=== PATIENT | female | born 1960 | race Caucasian/White ===

== ENCOUNTER 2017-09-24 11:06 | Emergency (ER) | payer OTHER ==
[2017-09-24] MEDS ORDERED: HYDROmorphone 1 MG/ML SYRINGE IM STA (12:18)
[2017-09-24] MEDS ORDERED: KETOROLAC 60 MG/2 ML VIAL IM STA (12:18)
[2017-09-24] MEDS ORDERED: DEXAMETHASONE 10 MG/ML VIAL IM STA (12:18)
--- NOTE | 2017-09-24 12:20 | ED Physician Documentation ---
PD HPI BACK PAIN - Stated complaint Stated Complaint: BACK PX - Chief complaint Chief Complaint: Back Pain - History obtained from History obtained from: Patient, Family - History of Present Illness Timing - onset: Other (57-year-old woman with recurrent back spasms that happen maybe a few times a year developed right low back pain after sitting in a hard chair 2 nights ago that is similar to prior back issues. Pain is in the right low back and radiates to the right hip but not further. There is no associated weakness, numbness, or tingling. It hurts worse if she takes a deep breath or bends over. There is no associated fever. She took hydrocodone and Flexeril with moderate to good relief. 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 HEENT: Tonsil/Adenoidectomy - Present Medications Home Medications: Ambulatory Orders Medication Instructions Recorded Confirmed Carboxymethylcellulose Sodium 1 each OP DAILY PRN 03/20/13 05/16/14 [Refresh Plus] Cyclosporine [Restasis] 1 each OP BID 03/20/13 05/15/14 Cyclobenzaprine [Flexeril] 10 mg PO TID PRN #20 tablet 09/24/17 predniSONE [Deltasone] 20 mg PO [id number] #21 tab 09/24/17 - Allergies Allergies/Adverse Reactions: Allergies Allergy/AdvReac Type Severity Reaction Status Date / Time Penicillins Allergy Intermediate Rash Verified 03/20/13 10:59 - Social History Does the pt smoke?: No Smoking Status: Never smoker Does the pt drink ETOH?: Yes Does the pt have substance abuse?: No - Immunizations Immunizations are current?: Yes PD ED PE NORMAL - Vitals Vital signs reviewed: Yes - General General: Alert and oriented X 3, No acute distress, Other (Prefers to stand and winces with deep breathing or motion.) - Abdomen Abdomen: Soft, Non tender - Back Back: No spinal TTP - Extremities Extremities: Other (The patient has equal and normal Achilles and patellar reflexes bilaterally. Normal sensation in all areas of the legs. Patient denies saddle anesthesia. Normal strength in flexion-extension at the ankles, knees, and flexion of the hips.) - Neuro Neuro: Alert and oriented X 3, Normal speech Results - Vitals Vitals: Vital Signs - 24 hr 09/24/17 11:18 Temperature 37.1 C Heart Rate 80 Respiratory 18 Rate Blood Pressure 141/92 H O2 Saturation 97 Oxygen O2 Source Room air PD MEDICAL DECISION MAKING - ED course ED course: This patient has seemingly uncomplicated musculoskeletal back pain. The patient has no "red flags." Specifically denies IV drug use, fevers, incontinence, saddle anesthesia. Spinal epidural abscess was considered, given that the patient has no fever, is not diabetic, has no spinal tenderness, does not use IV drugs, and has no bilateral neurologic symptoms, the diagnosis of spinal epidural abscess is considered exceedingly unlikely. Departure - Departure Disposition: Home, Self Care Clinical Impression: Back muscle spasm Condition: Good Record reviewed to determine appropriate education?: Yes Instructions: ED Low Back Pain Injury Prescriptions: Cyclobenzaprine [Flexeril] 10 mg PO TID PRN #20 tablet PRN Reason: Pain predniSONE [Deltasone] 20 mg PO [id number] #21 tab Comments: Call your doctor to arrange a follow-up appointment, make the next available appointment. In the interim, return anytime if worse or if new symptoms develop. Your blood pressure was elevated today on check into the emergency department. This does not mean that you have hypertension, it is a common phenomenon to come to the emergency department and have elevated blood pressure. I recommend that you see your primary care physician within the week to have it rechecked when you are feeling better.
[2017-09-24] MEDS ORDERED: CHERRY SYRUP 10 ML UDC PO ONE (12:34)
[2017-09-24] MEDS ORDERED: DEXAMETHASONE 10 MG/ML VIAL PO STA (12:44)
[2017-09-24] MEDS ORDERED: ONDANSETRON ODT 4 MG TABLET TL STA (12:44)
[2017-09-24 13:19] VITALS: BP 131/86
== END 2017-09-24 13:17 | disposition home or self-care (01) ==
LOC: ED 11:06
DX: M62.830 Muscle spasm of back (principal); R03.0 Elevated blood-pressure reading, without diagnosis of hypertension
CPT/HCPCS: 96372; 99283; A9270; J1170

== ENCOUNTER 2017-11-22 23:46 | Emergency (ER) | payer OTHER ==
[2017-11-23 00:02] VITALS: BP 136/87
--- NOTE | 2017-11-23 01:16 | ED Physician Documentation ---
PD HPI ABD PAIN - Stated complaint Stated Complaint: CONSTIPATION - Chief complaint Chief Complaint: Abd Pain - History obtained from History obtained from: Patient, Family - History of Present Illness Timing - onset: Today Timing - details: Gradual onset, Still present Quality: Cramping, Aching Location: All over / everywhere Associated symptoms: Constipation. No: Fever, Nausea, Vomiting Similar symptoms before: No diagnosis Recently seen: Surgery - Additional information Additional information: Patient is a 57 year old female who is presenting to the emergency department for abdominal pain and constipation. patient had a d/c done yesterday and today developed worsening abdominal pain and constipation. Patient states that she felt like she had a grapefruit sized stool stuck. Patient tried to do her own disimpaction but was unsuccessful. While waiting to be seen patient had a bowel movement and improvement of her symptoms. Review of Systems Constitutional: denies: Fever, Chills Eyes: reports: Reviewed and negative Ears: reports: Reviewed and negative Nose: reports: Reviewed and negative Throat: reports: Reviewed and negative Cardiac: reports: Reviewed and negative GI: reports: Abdominal Pain, Constipation. 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 HEENT: Tonsil/Adenoidectomy - Present Medications Home Medications: Ambulatory Orders Medication Instructions Recorded Confirmed Carboxymethylcellulose Sodium 1 each OP DAILY PRN 03/20/13 05/16/14 [Refresh Plus] Cyclosporine [Restasis] 1 each OP BID 03/20/13 05/15/14 Cyclobenzaprine [Flexeril] 10 mg PO TID PRN #20 tablet 09/24/17 predniSONE [Deltasone] 20 mg PO [id number] #21 tab 09/24/17 - Allergies Allergies/Adverse Reactions: Allergies Allergy/AdvReac Type Severity Reaction Status Date / Time Penicillins Allergy Intermediate Rash Verified 03/20/13 10:59 - Social History Does the pt smoke?: No Smoking Status: Never smoker Does the pt drink ETOH?: Yes Does the pt have substance abuse?: No - Immunizations Immunizations are current?: Yes PD ED PE NORMAL - Vitals Vital signs reviewed: Yes - General General: Alert and oriented X 3, No acute distress - HEENT HEENT: Atraumatic - Cardiac Cardiac: RRR - Respiratory Respiratory: No respiratory distress - Abdomen Abdomen: Soft, Non tender, Non distended - Derm Derm: Normal color, Warm and dry, No rash - Extremities Extremities: No deformity - Neuro Neuro: Alert and oriented X 3, No motor deficit Eye Opening: Spontaneous Motor: Obeys Commands Verbal: Oriented GCS Score: 15 - Psych Psych: Normal mood Results - Vitals Vitals: Vital Signs - 24 hr 11/22/17 23:59 Temperature 37.1 C Heart Rate 99 Respiratory 20 Rate Blood Pressure 136/87 H O2 Saturation 99 Oxygen O2 Source Room air - Rads (name of study) abd series Radiology: Final report received (no signs of obstruction) PD MEDICAL DECISION MAKING - ED course Complexity details: reviewed old records, reviewed results, re-evaluated patient , considered differential, d/w patient ED course: Patient was seen and examined at bedside. imaging had been ordered before patient had a bowel movement. Patient had two bowel movements while in the ED. Patient required no further work up and was stable for discharge with outpatient follow up. Departure - Departure Disposition: 01 Home, Self Care Clinical Impression: Constipation Condition: Good Instructions: ED Constipation Follow-Up: [facility] [Primary Care Provider] - As Needed Comments: Your x-ray today showed no sign of obstruction but there is still moderate amount of stool burden. You should continue with the increased water intake as well as a high fiber diet. You should follow up with your doctor as needed for new, worsening or uncontrollable symptoms. Discharge Date/Time: 11/23/17 01:23
--- NOTE | 2017-11-23 01:27 | XRAY Report ---
EXAM: ABDOMINAL SERIES AND PA CHEST EXAM DATE: 11/23/2017 12:49 AM. CLINICAL HISTORY: Abdominal pain. COMPARISON: None. TECHNIQUE: 2 views abdomen and 1 view chest. FINDINGS: CHEST: Lungs/Pleura: No focal opacities. No effusion or pneumothorax. Mediastinum: Heart size is normal. Aorta is mildly tortuous. ABDOMEN: Bowel Gas Pattern: Mild gaseous distention of small bowel and colon. No bowel dilatation. Small volum e of stool in the colon. No portal venous gas or pneumatosis. Free Air: None. Other: Mild degenerative changes. Dextroscoliosis of the lumbar spine. No acute osseous abnormalities . IMPRESSION: 1. No acute disease in the chest. 2. No bowel obstruction. 3. No free air. 4. Small volume of stool in the colon. [facility] Referring Provider Line: [phone] SITE ID: [id number]
== END 2017-11-23 01:23 | disposition home or self-care (01) ==
LOC: ED 23:46
DX: K59.00 Constipation, unspecified (principal)
CPT/HCPCS: 74022; 99282; 99283

== ENCOUNTER 2018-03-21 12:52 | Outpatient (CLI) | payer OTHER ==
--- NOTE | 2018-03-24 14:25 | Mammography Report ---
Procedure Date: 03/21/2018 Accession Number: [id number] / [id number] Procedure: MARGUERITE - Screening Mammo Dig Bilat CPT Code: FULL RESULT: EXAM: Screening Mammo Dig Bilat DATE: 03/21/2018 1:08 PM CLINICAL HISTORY: 57-year-old with history of benign left cyst aspiration for screening TECHNIQUE: Bilateral CC and MLO views were obtained. COMPARISON: Films from [place], [place] dated 03/24/2017, 08/18/2015, 05/15/1714 FINDINGS: The breasts demonstrate diffuse fatty replacement bilaterally. A few coarse, typically benign calcifications are present. No suspicious masses, clustered microcalcifications, or regions of architectural distortion are identified. IMPRESSION: Benign findings RECOMMENDATION: Routine annual screening unless otherwise clinically indicated. BIRADS CATEGORY 2: Benign findings STANDARD QUALIFYING STATEMENTS: 1. This examination was reviewed with the aid of Computer-Aided Detection (CAD). 2. A negative or benign imaging report should not delay biopsy if clinically suspicious findings are present. Consider surgical consultation if warrented. More than 5% of cancers are not identified by imaging. 3. Dense breasts may obscure an underlying neoplasm.
== END 2018-03-21 12:53 | disposition home or self-care (01) ==
LOC: DI 12:52
PROVIDERS: ATTEND Nurse Practitioner Family
DX: Z12.31 Encounter for screening mammogram for malignant neoplasm of breast (principal)
CPT/HCPCS: 77067

== ENCOUNTER 2018-08-18 15:50 | Emergency (ER) | payer OTHER ==
[2018-08-18 16:18] VITALS: BP 142/81
[2018-08-18] MEDS ORDERED: KETOROLAC 60 MG/2 ML VIAL IM STA (17:47)
--- NOTE | 2018-08-18 17:49 | ED Physician Documentation ---
PD HPI BACK INJURY - Stated complaint Stated Complaint: BK PX - History obtained from History obtained from: Patient - History of Present Illness Location: Right (57-year-old woman with occasional back pain, about once a year it has been flared over the last 2 days with pain over the right side of the lumbar spine into the hip a little bit. There is no associated weakness, numbness, tingling, saddle anesthesia, fever, or incontinence. 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 HEENT: Tonsil/Adenoidectomy - Present Medications Home Medications: Ambulatory Orders Medication Instructions Recorded Confirmed Carboxymethylcellulose Sodium 1 each OP DAILY PRN 03/20/13 05/16/14 [Refresh Plus] Cyclosporine [Restasis] 1 each OP BID 03/20/13 05/15/14 Cholecalciferol (Vitamin D3) 08/18/18 [Vitamin D3] Cyclobenzaprine [Flexeril] 10 mg PO TID PRN #20 tablet 08/18/18 Ibuprofen [Motrin] 08/18/18 Multivitamin [Multiple Vitamins] 08/18/18 Oxycodone HCl/Acetaminophen 1 - 2 each PO Q6H PRN #14 tablet 08/18/18 [Percocet 5-325 mg Tablet] - Allergies Allergies/Adverse Reactions: Allergies Allergy/AdvReac Type Severity Reaction Status Date / Time Penicillins Allergy Intermediate Rash Verified 08/18/18 16:18 - Social History Does the pt smoke?: No Smoking Status: Never smoker Does the pt drink ETOH?: Yes Does the pt have substance abuse?: No - Immunizations Immunizations are current?: Yes - POLST Patient has POLST: No PD ED PE NORMAL - Vitals Vital signs reviewed: Yes - General General: Alert and oriented X 3, No acute distress - Abdomen Abdomen: Normal bowel sounds, Soft, Non tender - Back Back: No spinal TTP, Other (The patient has equal and normal Achilles and patellar reflexes bilaterally. Normal sensation in all areas of the legs. Patient denies saddle anesthesia. Normal strength in flexion-extension at the ankles, knees, and flexion of the hips.) - Neuro Neuro: Alert and oriented X 3, Normal speech Results - Vitals Vitals: Vital Signs - 24 hr 08/18/18 16:15 Temperature 37.1 C Heart Rate 68 Respiratory 16 Rate Blood Pressure 142/81 H O2 Saturation 99 Oxygen O2 Source Room air PD MEDICAL DECISION MAKING - ED course ED course: This patient has seemingly uncomplicated musculoskeletal back pain. The patient has no "red flags." Specifically denies IV drug use, fevers, incontinence, saddle anesthesia. Spinal epidural abscess was considered, given that the patient has no fever, is not diabetic, has no spinal tenderness, does not use IV drugs, and has no bilateral neurologic symptoms, the diagnosis of spinal epidural abscess is considered exceedingly unlikely. The [place] prescription monitoring program was queried with regard to this patient. No concerning findings were found. Departure - Departure Disposition: 01 Home, Self Care Clinical Impression: Back muscle spasm Condition: Good Record reviewed to determine appropriate education?: Yes Instructions: ED Low Back Pain Injury Prescriptions: Cyclobenzaprine [Flexeril] 10 mg PO TID PRN #20 tablet PRN Reason: Spasms Oxycodone HCl/Acetaminophen [Percocet 5-325 mg Tablet] 1 - 2 each PO Q6H PRN #14 tablet PRN Reason: pain Comments: Call your doctor to arrange a follow-up appointment, make the next available appointment. In the interim, return anytime if worse or if new symptoms develop. Your blood pressure was elevated today on check into the emergency department. This does not mean that you have hypertension, it is a common phenomenon to come to the emergency department and have elevated blood pressure. I recommend that you see your primary care physician within the week to have it rechecked when you are feeling better. Do not drink or drive while taking narcotic pain medication. Note that many narcotic pain relievers also contain Tylenol/acetaminophen. Please ensure that your total dose of acetaminophen from all sources does not exceed 3 g (3000 mg) per day. You may get constipated while on this medication. Take a stool softener such as Colace twice a day while you are on it. Also add an irxh-lje-jeksvso laxative such as senna or MiraLAX on any day that you do not have a bowel movement. If you received a narcotic pain medication or sedative while in the emergency department, do not drive for the next 24 hours.
== END 2018-08-18 18:19 | disposition home or self-care (01) ==
LOC: ED 15:50
DX: M62.830 Muscle spasm of back (principal); R03.0 Elevated blood-pressure reading, without diagnosis of hypertension
CPT/HCPCS: 96372; 99282; 99283

== ENCOUNTER 2020-07-16 12:55 | Outpatient (CLI) | payer OTHER ==
--- NOTE | 2020-07-17 15:20 | Mammography Report ---
BILATERAL DIGITAL SCREENING MAMMOGRAM 3D/2D: 07/16/2020 CLINICAL: Routine screening. Comparison is made to exams dated: 03/21/2018 mammogram, 03/24/2017 mammogram, 08/18/2015 mammogram, a nd 05/22/2014 mammogram - [facility]. There are scattered fibroglandular elements i n both breasts. No significant masses, calcifications, or other findings are seen in either breast. There has been no significant interval change. IMPRESSION: NEGATIVE There is no mammographic evidence of malignancy. A 1 year screening mammogram is recommended. This exam was interpreted at Station ID: [id number]. NOTE: For mammograms, a report in lay terms will be sent to the patient. Approximately 15% of breast malignancies will not be visualized mammographically. In the management of a palpable breast mass, a negative mammogram must not discourage biopsy of a clinically suspicious lesion. Electronically Signed By: Glenn Severino M.D. ddp/penrad:07/16/2020 14:51:47 ACR BI-RADS Category 1: Negative 3341F PARENCHYMAL PATTERN: (A) - The breast(s) demonstrate(s) scattered fibroglandular densities. BI-RADS CATEGORY: (1) - 1 RECOMMENDATION: (ANNUAL) - Recommend routine annual screening mammography. [id number] 1 year screening LATERALITY: (B)
== END 2020-07-16 12:56 | disposition home or self-care (01) ==
LOC: DI.N 12:55
DX: Z12.31 Encounter for screening mammogram for malignant neoplasm of breast (principal)
CPT/HCPCS: 77063; 77067

== ENCOUNTER 2021-05-11 19:28 | Outpatient (CLI) | payer OTHER | END 2021-05-11 19:29 | disposition home or self-care (01) | LOC: COV 19:28 | PROVIDERS: ATTEND Physician Assistant | DX: Z01.812 Encounter for preprocedural laboratory examination (principal); Z20.822 Contact with and (suspected) exposure to COVID-19 ==

== ENCOUNTER 2021-11-30 07:20 | Outpatient (CLI) | payer OTHER ==
--- NOTE | 2021-11-30 12:56 | MRI Report ---
PROCEDURE: Knee LT W/O INDICATIONS: KNEE PAIN TECHNIQUE: Noncontrast sagittal PD fast spin echo and T2 fast spin echo with fat saturation, sagittal 3-D gradie nt sequence with fat saturation; coronal T1 spin echo and PD fast spin echo with fat saturation, and axial PD fast spin echo with fat saturation through the knee. COMPARISON: None. FINDINGS: Image quality: Diagnostic. Menisci: There is a focal radial tear along the free edge in the posterior horn of the medial menisc us. There is mild degenerative tearing also demonstrated within the body and posterior horn. The late ral meniscus appears intact. The meniscal root ligaments appear intact. Cruciate ligaments: The anterior and posterior cruciate ligaments appear intact. Medial structures: The medial collateral ligament appears intact. There is mild edema along the medi al capsule compatible with a reactive changes. The semimembranosus tendon insertions appear intact. Visualized portions of the pes anserinus tendons also appear intact as. No abnormal bursal fluid. Lateral structures: The fibular collateral ligament and biceps femoris tendon appear intact. The po pliteal tendon and the meniscofemoral ligaments appear intact. Anterior structures: The quadriceps and patellar tendons appear intact. Patellar alignment is river l. No femoral trochlear dysplasia or ventral trochlear prominence. Bones and cartilage: There is prominent subchondral edema along the proximal tibial plateau extending into the metaphysis of the proximal tibia. No discrete displaced or depressed fracture identified. T here is minimal osteophytosis. Mild to moderate cartilage thinning is demonstrated within the medial compartment with mild superficial chondral irregularity. In the lateral compartment, there is minimal cartilage thinning. In the patellofemoral compartment, there is moderate cartilage thinning with cho ndral fissuring along the median ridge of the patella and the medial patella facet associated with mi ld subchondral edema. Joint space: There is a small joint effusion. No Marquez's cyst. Normal appearing synovial plicae are incidentally noted. IMPRESSION: 1. Focal radial tear along the free edge in the posterior horn of the medial meniscus as well as mild degenerative tearing in the body and posterior horn of the medial meniscus. 2. Prominent bone marrow edema along the medial tibial plateau. The extent of edema appears greater t wise expected for the degree of overlying chondral degeneration suggesting sequelae of a bone contusio n or nondepressed subchondral impaction fracture. No depressed or displaced fractures. 3. Moderate chondral degeneration in the patellofemoral compartment. 4. Small joint effusion. Reviewed by: Glenn Severino MD on 11/30/2021 12:55 PM PST Approved by: Glenn Severino MD on 11/30/2021 12:55 PM PST Station ID: [id number]
== END 2021-11-30 07:21 | disposition home or self-care (01) ==
LOC: DI 07:20
PROVIDERS: ATTEND Family Medicine
DX: S83.242A Other tear of medial meniscus, current injury, left knee, initial encounter (principal); R93.6 Abnormal findings on diagnostic imaging of limbs; M94.9 Disorder of cartilage, unspecified; M25.462 Effusion, left knee

== ENCOUNTER 2023-02-22 07:02 | Outpatient (CLI) | payer OTHER ==
--- NOTE | 2023-02-22 08:52 | MRI Report ---
PROCEDURE: BRAIN WO INDICATIONS: HEADACHE TECHNIQUE: Noncontrast axial T1 spin echo, axial T2 fast spin echo, sagittal and axial FLAIR, coronal T2 fast sp in echo, axial gradient echo, axial diffusion and ADC through the brain. COMPARISON: None. FINDINGS: Image quality: Excellent. CSF Spaces: Basal cisterns are patent. No extra-axial fluid collections. Ventricles are normal in size and shape. Brain: No intracranial masses or hemorrhage. Mild diffuse age-appropriate volume loss. Mild degree of patchy high FLAIR signal within the periventricular and subcortical white matter. [place]/white matte r interface is normal. Brainstem appears normal. Diffusion-weighted images demonstrate no acute isc hemic insult. No chronic ischemic insults. Normal intravascular flow voids are present. Skull and face: Calvarium has normal marrow signal. Orbits appear normal. Sinuses: Mild mucosal thickening within the bilateral ethmoid air cells as well as the left maxillary sinus. IMPRESSION: 1. Mild volume loss and small vessel ischemic disease. 2. Mild sinus disease. 3. No acute process. No recent infarct. Reviewed by: Zonia Benites MD on 02/22/2023 8:50 AM PDT Approved by: Zonia Benites MD on 02/22/2023 8:50 AM PDT Station ID: [id number]
== END 2023-02-22 07:03 | disposition home or self-care (01) ==
LOC: DI 07:02
PROVIDERS: ATTEND Physician Assistant
DX: G31.89 Other specified degenerative diseases of nervous system (principal); I67.82 Cerebral ischemia

== ENCOUNTER 2023-10-25 16:30 | Outpatient (CLI) | payer OTHER ==
[2023-10-25 21:06] LABS: BASOPHILS % (AUTO) 0.4 %; EOSINOPHILS # (AUTO) 0.2 10^3/uL (0.0-0.7); EOSINOPHILS % (AUTO) 1.9 %; HCT - HEMATOCRIT 39.2 % (37.0-47.0); LYMPHOCYTES # (AUTO) 3.1 10^3/uL (1.5-3.5); LYMPHOCYTES % (AUTO) 37.6 %; MEAN CORPUSCULAR HEMOGLOBIN 31.1 pg (27.0-31.0); MEAN CORPUSCULAR HGB CONC 33.2 g/dL (32.0-36.0); MEAN CORPUSCULAR VOLUME 93.8 fL (81.0-99.0); MEAN PLATELET VOLUME 10.1 fL (7.9-10.8); MONOCYTES # (AUTO) 0.5 10^3/uL (0.0-1.0); MONOCYTES % (AUTO) 5.8 %; NEUTROPHILS # (AUTO) 4.5 10^3/uL (1.5-6.6); NEUTROPHILS % (AUTO) 54.1 %; PLT - PLATELET COUNT 275 10^3/uL (130-450); RED BLOOD COUNT 4.18 10^6/uL (4.20-5.40); RED CELL DISTRIBUTION WIDTH 13.2 % (12.0-15.0); WHITE BLOOD COUNT 8.3 x10^3/uL (4.8-10.8)
[2023-10-25 21:13] LABS: ALBUMIN 4.3 g/dL (3.2-5.5); ALBUMIN/GLOBULIN RATIO 1.5 (1.0-2.2); BILIRUBIN,TOTAL 0.4 mg/dL (0.2-1.0); CALCIUM 9.8 mg/dL (8.5-10.3); CREATININE 0.9 mg/dL (0.6-1.3); POTASSIUM 4.1 mmol/L (3.5-4.5); TOTAL PROTEIN 7.2 g/dL (6.4-8.9)
== END 2023-10-25 16:45 | disposition home or self-care (01) ==
LOC: LAB.N 16:30
PROVIDERS: ATTEND Physician Assistant
DX: L60.9 Nail disorder, unspecified (principal)
CPT/HCPCS: 36415; 80053; 81599; 85025